=== PATIENT | female | born 1995 | race Hispanic/Latino ===

== ENCOUNTER 2018-04-10 19:58 | Emergency (ER) | payer OTHER ==
[~2018-04-10] VITALS: Ht 152.4 cm; Wt 81.2 kg
[2018-04-10] MEDS ORDERED: PANTOPRAZOLE 40 MG 10ML VIAL IV ONE (20:30)
[2018-04-10] MEDS ORDERED: BELLADONNA ALK/PHENOBARBITAL 5 ML UDC PO ONE (20:30)
[2018-04-10] MEDS ORDERED: FAMOTIDINE 20 MG/2 ML VIAL IV ONE (20:30)
[2018-04-10] MEDS ORDERED: LIDOCAINE VISC 2% SOLN 15 ML UDC PO ONE (20:30)
[2018-04-10] MEDS ORDERED: MAGNESIUM/ALUMINUM/SIMETHICONE 30 ML UDC PO ONE (20:30)
[2018-04-10] MEDS ORDERED: PROMETHAZINE HC25 M1 PO (21:25)
[2018-04-10] MEDS ORDERED: PEPCID20 MG PO (21:25)
[2018-04-10] MEDS ORDERED: PANTOPRAZOLE SO40 MG PO (21:25)
== END 2018-04-10 21:31 | disposition home or self-care (01) ==
LOC: FSED 19:58
DX: R10.13 Epigastric pain (principal); K80.70 Calculus of gallbladder and bile duct without cholecystitis without obstruction
CPT/HCPCS: 80048; 80076; 81003; 81025; 85025; 99283